=== PATIENT | male | born 1950 | race Caucasian/White ===

== ENCOUNTER 2019-12-13 11:23 | Inpatient (IN) | payer MEDICARE, BC ==
[~2019-12-13] VITALS: Ht 190.5 cm; Wt 85.7 kg
--- NOTE | 2019-12-13 11:25 | NUR ---
PT BIB SELF C/O CHEST TIGHTNESS FOR 1 WEEK MUCH WORSE TODAY, PT IS AAOX4, NOT IN RESPIRATORY DISTRESS, HOOKED TO TAPE STRINGER, KEPT RESTED AND COMFORTABLE, WILL CONTINUE TO MONITOR.
--- NOTE | 2019-12-13 11:45 | NUR ---
SEEN AND EXAMINED BY .
--- NOTE | 2019-12-13 11:50 | NUR ---
IV LINE ESTABLISHED BLOOD DRAWN AND SENT TO LAB.
[2019-12-13] MEDS ORDERED: ASPIRIN 325 MG TABLET ONE (11:55)
[2019-12-13 11:56] LABS: BASOPHILS # (AUTO) 0.1 /CMM (0.0-0.2); BASOPHILS % (AUTO) 1.2 % (0.0-2.0); EOSINOPHILS % (AUTO) 9.8 % (0.0-6.0); HEMATOCRIT 45 % (39-51); LYMPHOCYTES # (AUTO) 1.4 /CMM (0.8-4.8); LYMPHOCYTES % (AUTO) 25.9 % (20.0-44.0); MEAN CORPUSCULAR HGB CONC 34 g/dl (31.0-36.0); MEAN CORPUSCULAR VOLUME 93 fL (80-96); MONOCYTES # (AUTO) 0.9 /CMM (0.1-1.30); MONOCYTES % (AUTO) 15.7 % (2.0-12.0); NEUTROPHILS # (AUTO) 2.6 /CMM (1.8-8.9); NEUTROPHILS % (AUTO) 47.4 % (43.0-81.0); PLATELET COUNT (AUTO) 302 /CMM (150-450); WHITE BLOOD COUNT (AUTO) 5.4 K/uL (4.3-11.0)
[2019-12-13] MEDS ORDERED: ASPIRIN 325 MG TABLET PO ONE (12:00)
--- NOTE | 2019-12-13 12:07 | NUR ---
LOCKSTITCH FRONT MAKER AT BEDSIDE FOR XRAY.
[2019-12-13 12:10] LABS: CALCIUM, SERUM 9.2 mg/dL (8.5-10.1); CARBON DIOXIDE 28 mmol/L (21-32); CHLORIDE 103 mmol/L (98-107); CREATININE 1.2 mg/dL (0.6-1.3); GLUCOSE 115 mg/dL (74-106); POTASSIUM 3.8 mmol/L (3.5-5.1); SODIUM SERUM 140 mmol/L (136-145); UREA NITROGEN, BLOOD 19 mg/dL (7-18)
[2019-12-13 12:22] LABS: B-TYPE NATRIURETIC PEPTIDE 320 PG/ML (0-125)
--- NOTE | 2019-12-13 13:35 | NUR ---
CALLED [facility]
[2019-12-13] MEDS ORDERED: LATA2.5D7 EACHEYE (13:43)
--- NOTE | 2019-12-13 14:00 | NUR ---
CALLED [facility] X2
--- NOTE | 2019-12-13 14:28 | NUR ---
GOT BED 308
[2019-12-13] MEDS ORDERED: TIMO5DRO35 EACHEYE (14:32)
[2019-12-13] MEDS ORDERED: MAG HYDROX/AL HYDROX/SIMETH 30 ML UDC PO PRN (15:00)
[2019-12-13] MEDS ORDERED: MAGNESIUM HYDROXIDE 30 ML UDC PO PRN (15:00)
[2019-12-13] MEDS ORDERED: HYDROCODONE/APAP 5/325MG 1 EACH TABLET PO PRN (15:00)
[2019-12-13] MEDS ORDERED: ACETAMINOPHEN 325 MG TABLET PO PRN (15:00)
[2019-12-13] MEDS ORDERED: Z GUARD REMEDY 2 OZ OINT TP PRN (15:00)
[2019-12-13] MEDS ORDERED: ZOLPIDEM TARTRATE 5 MG TABLET PO PRN (15:00)
[2019-12-13] MEDS ORDERED: ONDANSETRON HCL/PF 4 MG/2 ML VIAL IVP PRN (15:00)
--- NOTE | 2019-12-13 15:07 | NUR ---
Note joe in ED - 12/13/19 at 1528 by FABY Patient does not wish to proceed with medical care recommended by Dr. CANCHOLA. Patient given information related to possible complications, up to and including , which could occur as a result of leaving the hospital at this time. Patient verbalizes understanding of risks involved due to leaving against medical advice. Patient has signed AMA form.
--- NOTE | 2019-12-13 15:45 | NUR ---
REPORT GIVEN TO HEIKE ROSSI FOR WILMA.
--- NOTE | 2019-12-13 15:54 | NUR ---
PT IS WHEELED TO RADIOLOGY FOR CT ANGIO.
[2019-12-13] MEDS ORDERED: IOHEXOL-350 100 ML VIAL IV ONE (16:00)
[2019-12-13] MEDS ORDERED: CT SWABBABLE VALVE TRANS SET 1 EA INFUS.SET MC ONE (16:00)
[2019-12-13] MEDS ORDERED: IV NS 0.9% 250 ML IV ONE (16:00)
[2019-12-13] MEDS ORDERED: METOPROLOL TARTRATE INJ 5 MG/5 ML AMPUL ONE ×2 (16:22→16:45)
[2019-12-13] MEDS ORDERED: NITROGLYCERIN 0.4 MG/TAB BOTTLE ONE (16:22)
[2019-12-13] MEDS: METOPROLOL TARTRATE INJ 5 MG/5 ML AMPUL IVP PRN ×5 (16:25→16:45)
[2019-12-13] MEDS ORDERED: NITROGLYCERIN 0.4 MG/TAB BOTTLE SL ONE (16:30)
[2019-12-13] MEDS ORDERED: IV NS 0.9% 500 ML IV ONE (16:38)
[2019-12-13] MEDS ORDERED: IV NS 0.9% 250 ML BAG IV ONE (17:00)
[2019-12-13 17:29] VITALS: BP 93/65
--- NOTE | 2019-12-13 17:45 | NUR ---
Tele/RN - Admission Received patient post CTCA, A/O x 4, denies chest pain, not in any form of distress, stable on room air, tele shows SR. Skin assessment done, no skin breakdown seen. All belongings accounted, refused picture to be taken on his yellow metal ring. Patient oriented to room and use of call light. All needs attended. Admission orders noted and carried out. Patient was educated on plan of care and in agreement.
--- NOTE | 2019-12-13 18:51 | NUR ---
Tele/RN - End of shift summary Patient moved to Rm 316-2 for roommate compatibility. No significant change in condition seen. Will continue with current plan of care.
--- NOTE | 2019-12-13 20:00 | NUR ---
tele waistband setter initial notes received report from am nurse and seen pt in bed resting but arouse to his name. Denies any chest pain or any discomfort. He's on tele Sinus Rhythm heart rate 65 per monitor. encourage pt to used the call light if he needs some helped. kept him comfortable at all times. will continue monitoring. call light at reach.
[2019-12-13 20:55] VITALS: BP 101/51
[2019-12-13 22:00] VITALS: BP 101/51
[2019-12-13] MEDS ORDERED: LATANOPROST EYE DROP 0.005% 2.5 ML BOTTLE EACHEYE SCH (22:00)
[2019-12-14] VITALS: BP 112/64
--- NOTE | 2019-12-14 | NUR ---
tele employee benefits attorney notes pt sleeping at this time without any distress noted. Sinus Rhythm on tele monitor.
[2019-12-14 04:31] VITALS: BP 109/64
[2019-12-14] MEDS: POTASSIUM CHLORIDE 20 MEQ TAB.PRT.SR PO SCH ×2 (06:54→08:08)
[2019-12-14] MEDS: IV NS 0.9% 1,000 ML IV PRN ×2 (07:06→11:51)
--- NOTE | 2019-12-14 07:13 | NUR ---
tele school photograph editor closing notes seen by DR Jane with orders noted and carried out. Pt awake and alert complaining of headache, TYlenol po given as ordered. Tele SR per monitor. slept well and stable fidencio the night. kept him comfortable at all times. place call light at reach. Endorse to am nurse Dickerson for continuity of care.
--- NOTE | 2019-12-14 07:15 | NUR ---
Tele/RN - Admission Patient is A/O x 4, no complaints overnight, afebrile, denies chest pain, not in any form of distress, stable on room air, tele shows SR. Seen and examined by Dr. Jane, cleared for discharge home after NS at 200 ml/hr x 2 liters infusion. Patient was educated on plan of care and in agreement. Will continue to monitor closely.
[2019-12-14 08:00] VITALS: BP 121/56
[2019-12-14] MEDS ORDERED: ATORVASTATIN 10 MG TABLET PO SCH (09:00)
[2019-12-14] MEDS ORDERED: TIMOLOL 0.5% SOLN OPHTH 5 ML BOTTLE OP SCH (09:00)
--- NOTE | 2019-12-14 16:15 | NUR ---
Tele/RN - Discharge Patient alert and oriented throughout the shift, discharged home in stable condition, remain afebrile, SR on the monitor, denies chest pain, no c/o dizziness, not in any form of distress, ambulates with steady gait. Reviewed discharge instructions with patient and he verbalized full understanding of all teachings including medications and follow-up care with Dr. Jane and PCP within 1 week. Patient was also advised to seek immediate medical attention for worsening symptoms, chest pain, shortness of breath, palpitations, abdominal pain/distention, intractable nausea and vomiting, diarrhea, hematochezia, melena, weakness, loss of consciousness, neurological deficit, or any other emergent concerns. All belongings with patient and he deny any missing items. Patient refused photos to be taken of skin, no skin breakdown noted. Saline lock removed on the left AC with catheter tip intact, no redness, no swelling noted at the site. Discharge paperwork signed and copies were given per protocol. Accompanied to the lobby and transported by private car by .
== END 2019-12-14 16:00 | disposition home or self-care (01) | DRG 640 ==
LOC: ER 11:26 → TELE 14:45
PROVIDERS: ADMIT Family Medicine; ATTEND Family Medicine
DX: E86.9 Volume depletion, unspecified (principal); N17.0 Acute kidney failure with tubular necrosis; I25.118 Atherosclerotic heart disease of native coronary artery with other forms of angina pectoris; E78.5 Hyperlipidemia, unspecified; H40.9 Unspecified glaucoma; J43.9 Emphysema, unspecified; I95.1 Orthostatic hypotension; E78.00 Pure hypercholesterolemia, unspecified; R73.9 Hyperglycemia, unspecified; Z82.5 Family history of asthma and other chronic lower respiratory diseases; Z87.891 Personal history of nicotine dependence; I44.4 Left anterior fascicular block
CPT/HCPCS: 36415; 71045-TC; 75574; 80048-TC; 83880; 84484-TC; 85025-TC; 87081-TC; 93307-TC; G0378; J3490; J7030; J7040; J7050; Q9967

== ENCOUNTER 2022-01-12 12:39 | Emergency (ER) | payer MEDICARE, BC ==
[~2022-01-12] VITALS: Ht 185.4 cm; Wt 82.1 kg
[~2022-01-12 12:39] MED LIST: LATA2.5D15 EACHEYE; TIMO5DRO35 EACHEYE
--- NOTE | 2022-01-12 12:51 | NUR ---
BIB FRIEND C/O DIZZINESS. "1H or so ago felt dizzy-bumping into pelaez- called friend thinking I may had a stroke". TO ER BED 3, HOOOKED TO MONITOR, CHANGED TO HOSP GOWN, WARM BLANKET PROVIDED. PATIENT AAO x 3. BREATHING JARRELL AND UNLABORED. DR CIFUENTES AT BEDSIDE
[2022-01-12 13:30] LABS: BASOPHILS % (AUTO) 0.6 % (0.0-2.0); EOSINOPHILS % (AUTO) 1.9 % (0.0-6.0); HEMATOCRIT 40 % (39-51); HEMOGLOBIN 13.6 g/dL (13.5-17.5); LYMPHOCYTES # (AUTO) 1.3 K/uL (0.8-4.8); LYMPHOCYTES % (AUTO) 23.2 % (20.0-44.0); MEAN CORPUSCULAR HGB CONC 34 g/dl (31.0-36.0); MEAN CORPUSCULAR VOLUME 94 fL (80-96); MONOCYTES # (AUTO) 0.6 K/uL (0.1-1.30); MONOCYTES % (AUTO) 11.3 % (2.0-12.0); NEUTROPHILS # (AUTO) 3.4 K/uL (1.8-8.9); PLATELET COUNT (AUTO) 272 K/uL (150-450); RED BLOOD CELL COUNT(AUTO) 4.29 MIL/uL (4.5-6.0); WHITE BLOOD COUNT (AUTO) 5.5 K/uL (4.3-11.0)
[2022-01-12 13:35] LABS: CALCIUM, SERUM 8.8 mg/dL (8.5-10.1); CARBON DIOXIDE 29 mmol/L (21-32); CHLORIDE 105 mmol/L (98-107); GLUCOSE 94 mg/dL (74-106); SODIUM SERUM 141 mmol/L (136-145); UREA NITROGEN, BLOOD 21 mg/dL (7-18)
[2022-01-12 13:40] LABS: ALANINE AMINOTRANSFERASE 27 U/L (12-78); ALBUMIN 3.8 g/dL (3.4-5.0); ALKALINE PHOSPHATASE 61 U/L (46-116); ASPARTATE AMINOTRANSFERASE 25 U/L (15-37); BILIRUBIN,DIRECT 0.1 mg/dL (0.0-0.2); BILIRUBIN,TOTAL 0.5 mg/dL (0.2-1.0); TOTAL PROTEIN, SERUM 7.1 g/dL (6.4-8.2)
--- NOTE | 2022-01-12 13:43 | NUR ---
WHEELED OUT VIA RNEY FOR CT SCAN
--- NOTE | 2022-01-12 15:16 | NUR ---
IV removed. Catheter intact and site benign. Pressure and 4x4 applied to site. No bleeding noted.
--- NOTE | 2022-01-12 15:16 | NUR ---
Patient discharged to home in stable condition. Written and verbal after care instructions given. Patient verbalizes understanding of instruction.
[2022-01-12 15:17] VITALS: BP 102/72
== END 2022-01-12 15:17 | disposition home or self-care (01) ==
LOC: ER 12:50
DX: I95.1 Orthostatic hypotension (principal); N17.8 Other acute kidney failure; Z79.899 Other long term (current) drug therapy
CPT/HCPCS: 36415; 70450-TC; 80048-TC; 80076-TC; 84484-TC; 85025-TC